=== PATIENT | male | born 2000 | race Caucasian/White ===

== ENCOUNTER 2022-01-24 18:30 | Emergency (ER) | payer OTHER, SELFPAY ==
--- NOTE | ~2022-01-24 | CT_ITS ---
EXAMINATION: CT abdomen pelvis w con EXAM DATE: 01/24/2022 20:44 INDICATION: lower abdominal and inguinal pain on the left . TECHNIQUE: Spiral CT of the abdomen and pelvis was performed following intravenous injection of 100 m L Omnipaque 350. Axial, coronal and sagittal images of the abdomen and pelvis were reviewed. The do se-length product (DLP) for this examination was 375.91 mGy-cm. The exposure was tailored according to patient size (auto mA exposure control), and iterative reconstruction (ASIR) was used as additiona l dose reduction technique. There is no prior study for comparison. FINDINGS: The liver, spleen, adrenal glands and pancreas are unremarkable. Gallbladder is unremarkab le. No biliary obstruction. Portal and splenic veins are patent. Kidneys enhance symmetrically. T here is no hydronephrosis. The prostate is unremarkable. The bladder is unremarkable. There is no retroperitoneal or pelvic lymphadenopathy. Inguinal regions are unremarkable, no hernia. Some serp iginous dilated right-sided deep pelvic veins lateral to the bladder and right seminal vesicle. The appendix is normal. The stomach and small bowel are unremarkable. There is expected amount of c olonic stool. No free intraperitoneal gas. The heart is normal in size. There are no pericardial or pleural effusions. The lung bases are unremarkable. Small thoracolumbar Schmorl's nodes. IMPRESSION: 1. Right deep pelvic dilated veins, probably incidental and unrelated to acute symptoms. 2. No acute findings. Reviewed, dictated and finalized at location .
[2022-01-24 19:01] VITALS: BP 139/94; PULSE 85; RESP 18; TEMP 36.6; O2SAT 100
--- NOTE | 2022-01-24 19:27 | ED.MALEGU ---
HPI - Male Genitourinary General Chief complaint: Urogenital-Male Stated complaint: pain in Lt testicle Source: patient Mode of arrival: ambulatory Limitations: no limitations History of Present Illness HPI Narrative: this is a 21-year-old gentleman that presents with some left inguinal tugging/pain radiating into his left testicle there is no known injury there is no swelling in the testicle no redness no warmth no tenderness with with raising left testicle. Patient has no fever chills no known injury, there is some lower left abdominal and groin discomfort with palpation. There is no discharge from the penis there is no erythema no drainage no flank pain no hematuria no dysuria. Complaint: testicle pain ( Radiating into the left upper inguinal area) Onset (ago): hour(s) Duration: constant Location: left testicle and left inguinal region Radiation: left inguinal region Severity: moderate Severity scale (1-10): 6 Quality: other ( tugging sensation) Relieving factors: rest Related Data Allergies Allergy/AdvReac Type Severity Reaction Status Date / Time No Known Allergies Allergy Verified 09/13/16 12:20 Review of Systems Review of Systems: All systems reviewed & are unremarkable except as noted in HPI and below [facility] Past Medical History Medical History Patient denies medical problems Exam Const: General: no acute distress and alert HENMT: Head: normal to inspection and contusion Eyes: Conjunctivae: conjunctivae normal Pupils: Equal, round and reactive pupils present EOM: EOMs intact bilaterally Neck: Neck: normal visual inspection, no lymphadenopathy and no meningeal signs Chest: Chest palpation & inspection: normal inspection of the chest Resp: Effort & Inspection: normal respiratory effort Auscultation: clear to auscultation bilaterally Cardio: Rate: regular rate Rhythm: regular rhythm GI: GI Palp: Yes Soft to palpation Percussion: Yes normal to percussion : Testes: Testes normal Other: negative Prehn sign of left testicle, palpation of internal left testicle appears to have inguinal hernia has left groin. Urinary Catheter: Urinary Catheter: patent and draining Back/Spine/Pelvis: Back: no CVA tenderness Skin: General skin exam: normal color Rashes: no rashes Neuro: General: patient oriented x3, moves all extremities and no meningeal signs Extrem: General: normal to inspection and no pedal edema Psych: Mental Status: mental status grossly normal Affect: normal affect Course Course Emergency Course: Patient received Toradol, IV was placed and CT scan of the abdomen pelvis performed as well as UA and CBC and CMP were performed reviewed with patient. Vital Signs Vital signs: Vital Signs Temperature 36.6 C 01/24/22 19:01 Pulse Rate 85 01/24/22 19:01 Respiratory Rate 18 01/24/22 19:01 Blood Pressure 139/94 H 01/24/22 19:01 Pulse Oximetry 100 01/24/22 19:01 Temperature 36.6 C 01/24/22 19:01 Pulse Rate 85 01/24/22 19:01 Respiratory Rate 18 01/24/22 19:01 Blood Pressure 139/94 H 01/24/22 19:01 Pulse Oximetry 100 01/24/22 19:01 Critical Care Time Critical Care Time Critical Care Time: No Discharge Plan Discharge Clinical Impression: Epididymitis Patient Disposition: Home, Self-Care Condition: Stable Instructions: Antibiotic Form, Epididymo-Orchitis (ED) Additional Instructions: take medication as prescribed, take Tylenol or Motrin for pain and discomfort, follow-up with primary care physician within 3 to 4 days if symptoms persist or worsen. Prescriptions: New sulfamethoxazole-trimethoprim [Bactrim DS] 800-160 mg tablet 1 tablet PO Q12H Qty: 14 RF: 0 Follow-up/Referrals: UNKNOWN,DOCTOR [Primary Care Provider] - Time of Disposition: 21:15
[2022-01-24 19:45] LABS: Basophils Absolute Auto 0.03 K/mm3 (0.00-0.10); Basophils Percent Auto 0.6 % (0.0-1.0); Eosinophils Absolute Auto 0.09 K/mm3 (0.02-0.50); Eosinophils Percent Auto 1.8 % (1.0-6.0); Hematocrit 46.4 % (40.0-54.0); Hemoglobin 15.1 g/dL (14.0-18.0); Immature Granulocyte Absolute 0.01 K/mm3 (0.00-0.00); Immature Granulocyte Percent A 0.2 % (0.0-0.0); Lymphocytes Absolute Auto 1.86 K/mm3 (1.10-4.50); Lymphocytes Percent Auto 36.9 % (18.0-42.0); Mean Corpuscular HGB Conc 32.5 g/dL (32.0-36.0); Mean Corpuscular Hemoglobin 28.3 pg (27.0-31.0); Mean Corpuscular Volume 87.1 fL (78.0-102.0); Mean Platelet Volume 10.9 fl (8.7-11.0); Monocytes Absolute Auto 0.43 K/mm3 (0.10-0.90); Monocytes Percent Auto 8.5 % (2.0-11.0); Neutrophils Absolute Auto 2.6 K/mm3 (1.7-7.2); Platelet Count Result 255 K/mm3 (150-420); Red Blood Count 5.33 M/mm3 (4.70-6.10); Red Cell Distribution Width 12.8 % (11.6-14.4)
[2022-01-24] MEDS: KETOROLAC (*BKC) 60 MG/2 ML VIAL IM (19:45)
[2022-01-24 19:47] LABS: Add Urine Microscopic? NO; Appearance Urine Clear (Clear); Bilirubin Urine Negative (Negative); Blood Urine Negative (Negative); Color Urine Light Yellow (Yellow); Glucose Urine UA Negative (Negative); Ketones Urine Negative (Negative); Leukocyte Esterase Ur Negative (Negative); Nitrate Urine Negative (Negative); Protein Urine Negative (Negative); Specific Grav Ur 1.025 (1.010-1.020); Urobilinogen Urine 0.2 mg/dL (0.2-1.0)
[2022-01-24 20:03] LABS: Alanine Aminotransferase 30 U/L (16-63); Albumin Level 4.8 g/dL (3.4-5.0); Alkaline Phosphatase 61 U/L (46-116); Anion Gap 11 mmol/L (8-16); Aspartate Amino Transferase 19 U/L (15-37); Bilirubin,Total 0.2 mg/dL (0.00-1.00); Blood Urea Nitrogen 19 mg/dL (7-18); Calcium 9.7 mg/dL (8.5-10.1); Carbon Dioxide 28 mmol/L (21-32); Chloride 103 mmol/L (98-108); Estimated CRCL calculation 114 ml/min; Estimated Glomerular Filt Rate > 60; Glucose 92 mg/dL (70-99); Osmolality Calculated 296 mOsm/kg (285-295); Potassium 3.6 mmol/L (3.5-5.1); Sodium 142 mmol/L (136-145); Total Protein 8.4 g/dL (6.4-8.2)
[2022-01-24 21:32] VITALS: BP 129/67; PULSE 87; RESP 18; TEMP 36.6; O2SAT 97
== END 2022-01-24 21:39 | disposition home or self-care (01) ==
PROVIDERS: Emergency Provider Emergency Medicine
DX: N45.1 Epididymitis (principal)
CPT/HCPCS: 36415; 74177; 80053; 81003; 85025; 96372; 99284; A9270; J1885; Q9967